=== PATIENT | female | born 1965 | race Two or more races ===

== ENCOUNTER 2016-11-11 10:45 | Emergency (ER) | payer SELFPAY ==
[~2016-11-11] VITALS: Ht 160 cm; Wt 78.5 kg
[2016-11-11 11:10] VITALS: BP 141/82
[2016-11-11] MEDS ORDERED: KETOROLAC TROMETH 60MG/2ML VIAL IM ONE (13:00)
== END 2016-11-11 13:26 | disposition home or self-care (01) ==
LOC: ER 10:45
DX: M54.42 Lumbago with sciatica, left side (principal); G89.29 Other chronic pain
CPT/HCPCS: 96372; 99283; J1885; J7030